=== PATIENT | female | born 1940 | race Caucasian/White ===

== ENCOUNTER 2017-03-23 16:07 | Emergency (ER) | payer MEDICARE, OTHER ==
[2013-08-08 13:15] VITALS: BMI 28.4
[~2017-03-23 16:07] MED LIST: ASPIRIN325 MG PO; HYDROCHLOROTHIA25 MG PO; LOPRESSOR25 MG PO; LOTENSIN40 MG PO; MOTRIN800 MG PO; NITROSTAT0.4 MG SL; TOPROL XL50 MG PO
== END 2017-03-23 16:23 | disposition left against medical advice (07) ==
LOC: D.ER 16:07
DX: Z02.9 Encounter for administrative examinations, unspecified (principal)

== ENCOUNTER → 2018-03-22 14:13 | Outpatient (CLI) | payer MEDICARE, OTHER ==
[2013-08-08 13:15] VITALS: BMI 28.4
== END | disposition home or self-care (01) ==
LOC: D.RAD 14:13
DX: M16.0 Bilateral primary osteoarthritis of hip (principal)

== ENCOUNTER 2021-05-11 15:34 | Inpatient (IN) | payer MEDICARE, OTHER ==
[~2021-05-11] VITALS: Ht 170.2 cm; Wt 75.2 kg
[2021-05-11 16:25] LABS: BILIRUBIN NEGATIVE (NEGATIVE); KETONE NEGATIVE mg/dL (< 1+); NITRITE NEGATIVE (NEGATIVE); SQUAMOUS EPITHELIAL <1 HPF (0-4); UROBILINOGEN NORMAL mg/dL (< 2); WHITE CELLS - URINE 11 HPF (0-4)
[2021-05-11] MEDS ORDERED: ASPIRIN81 MG PO (16:27)
[2021-05-11] MEDS ORDERED: LISINOPRIL20 MG PO (16:27)
[2021-05-11] MEDS ORDERED: CENTRUM SILVER1 EAC3 PO (16:27)
[2021-05-11] MEDS ORDERED: B-12 DOTS500 MCG PO (16:27)
[2021-05-11] MEDS ORDERED: CO Q-10200 MG PO (16:27)
[2021-05-11] MEDS ORDERED: DONEPEZIL HCL10 MG PO (16:28)
[2021-05-11] MEDS ORDERED: CALTRATE+D3 PL1 EACH PO (16:31)
[2021-05-11] MEDS ORDERED: GLUCOSAMINE HC500 MG PO (16:31)
[2021-05-11 16:35] LABS: BASOPHILS 0.8 % (0-2); EOSINOPHILS 2.9 % (0-7); HEMATOCRIT 40.4 % (36.0-48.0); HEMOGLOBIN 13.4 g/dL (12-16); LYMPHOCYTES 25.4 % (15-50); MCH 30.6 pg (26.0-34.0); MCHC 33.2 g/dL (31.0-37.0); MEAN PLATELET VOLUME 7.2 fL (7.4-10.4); MONOCYTES 10.5 % (2-11); NEUTROPHILS 60.4 % (40-80); PLATELET COUNT 182 10x3/uL (130-400); RBC 4.39 10x6/uL (4.00-5.40); RDW 12.9 % (11.5-14.5); WBC 6.4 10x3/uL (4.8-10.8)
[2021-05-11 16:35] LABS: BACTERIA FEW HPF (<MOD); UDS - AMPHET NEGATIVE QUAL (NEGATIVE); UDS - BARB NEGATIVE QUAL (NEGATIVE); UDS - BENZO NEGATIVE QUAL (NEGATIVE); UDS - COCAINE NEGATIVE QUAL (NEGATIVE); UDS - OPIATE NEGATIVE QUAL (NEGATIVE); UDS - PCP NEGATIVE QUAL (NEGATIVE); UDS - THC NEGATIVE QUAL (NEGATIVE)
[2021-05-11 16:42] LABS: CALCIUM 10.3 mg/dL (8.5-10.1); CREATININE - SERUM 1.2 mg/dL (0.6-1.3)
[2021-05-11 16:48] LABS: ALBUMIN 3.9 g/dL (3.4-5.0); BILIRUBIN - TOTAL 0.34 mg/dL (0.2-1.3); MAGNESIUM - SERUM 2.4 mg/dL (1.8-2.4); PROTEIN - SERUM 7.4 g/dL (6.4-8.2)
[2021-05-11 19:53] LABS: SARS-CoV-2 ANTIGEN NEGATIVE- SARS-COV-2 (NEGATIVE)
[2021-05-11 20:00] VITALS: BP 111/78
--- NOTE | 2021-05-11 22:34 | NUR ---
PT ADMITTED TO [facility] FROM [facility] ER FOR S.I. AND AGGRESSION WITH SPOUSE. PT LIVES AT HOME WITH SPOUSE. PT HUSBNAD REPORTS " MY STILL DRIVES, WHEN I HAD TO TAKE HER KEYS IT GOT REALLY BAD." REPORTS" I CALLED POLICE FOR SAFETY. " MY BECAME VERY VERBALLY AND PHYSICALLY AGGRESSIVE. "PT STATED SHE WANTED TO KILL HERSELF. " PT HAS HX OF DEMENTIA PER . VERBAL CONSENT REC'D FROM LANIE SARABIA/QUENTIN CONTACT # [phone]. PT IS DNR. PT'S WILL BRING COPY OF POA AND LIVING WILL PAPERWORK ONE DAY THIS WEEK DUE TO IT IS LOCKED IN SAFETY DEPOSIT BOX AT THE [facility]. PT HUSBANDM REPORTS HE IS HAVING A PROCEDURE AT [facility] ON THURSDAY AND WILL NOT BE ABLE TO BE CONTACTED UNTIL THURSDAY. LANIE REORTED " HE WILL BRING CLOTHING ON THURSDAY EVENING AND PICKUP PT'S BELONGINGS AT THAT TIME. CODE # [id number] PROVIDED TO LANIE AT THIS TIME. PT PHARMACY IS [facility] [place] UNABLE TO GET MEDICATION LIST AT THIS TIME. STAFF WILL NEED TO CONTACT PHARMACY DURING BUSINESS HOURS FOR ACCURATE MEDICATION LIST. PT'S PCP IS MRS. NALDO OROZCO CONTACT # [phone]. PT REPORTED SHE WENT TO ER AT [facility] ON THURSDAY WITH A FRIEND AND HE IS UNSURE THE REASON FOR THE VISIT. MEDICAL RECORDS REQUESTED TO BE SENT TO [facility] PER LANIE SARABIA. PT HAD NEGATIVE COVID RESULT IN [facility] ER. TEVIN BARRIENTOS STATED PT WAS GIVEN ROCEPHIN 1GM IM IN ER FOR UTI. LAB NOTIFIED PER STAFF AND URINE CULTURE COLLECTED BEFORE ANTIBOTIC ADMINISTERED. UPON ARRIVAL PT IS VERY ANXIOUS AND DEMANDING. PT IS CONFUSED AND HAS LITTLE INSIGHT INTO HER SITUATION AT THIS TIME. PT DENIES SI AT THIS TIME.
[2021-05-11 23:09] VITALS: BP 111/78
[2021-05-11 23:25] VITALS: BP 111/76
[2021-05-12 07:19] LABS: CHOL - HDL RATIO 3.4 ratio (2.3-4.1); CHOLESTEROL, TOTAL 226 mg/dL (0-200); HDL CHOLESTEROL 66 mg/dL (32-96); LDL CHOLESTEROL 128 mg/dL (0-100); LDL-HDL RATIO 1.9 ratio (1.5-3.5); THYROID STIMULATING HORMONE 3.22 uIU/mL (0.36-3.74); TRIGLYCERIDE 160 mg/dL (30-200)
[2021-05-12 08:00] VITALS: BP 137/76
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
--- NOTE | 2021-05-12 16:55 | NUR ---
ALERT, CALM, CONFUSED, COOPERATIVE AND QUITE PLEASANT. NO ADVERSE BEHAVIORS NOTED. MEDS ADMIN PER ORDERS WITH COMPLETE MED COMPLIANCE NOTED. NO ADVERSE REACTION TO MEDS. CONTINUE PLAN OF CARE.
--- NOTE | 2021-05-12 19:57 | NUR ---
RECEIVED IN [facility]. CALM AND COOPERATIVE WITH CARE AND ASSESSMENT. NO SIGNS OF AGGRESSION. REDIRECT AND REORIENT NEEDED. RESTING QUIETLY IN BED AT TIME. CONTINUE PLAN OF CARE.
[2021-05-12 22:25] VITALS: BP 133/68
[2021-05-13 08:00] VITALS: BP 120/70
[2021-05-13 13:05] VITALS: Ht 170.2 cm; Wt 75.2 kg
--- NOTE | 2021-05-13 15:10 | NUR ---
RECEIVED IN HALLWAY OUTSIDE OF NURSES STATION. SITTING IN CHAIR. SOCIALIZING. TRYING TO HELP OTHER PATIENTS. CALM AND COOPERATIVE WITH CARE AND ASSESSMENT. NO AGGRESSIVE BEHAVIOR. PATIENT MAKES STATEMENTS THROUGHOUT THE DAY ABOUT HER WANTING TO KILL HER. PATIENT STATES EVERYTHING IS GOING TO CHANGE WHEN SHE GETS OUT OF HERE. REDIRECT AND REORIENT NEEDED. SITTING IN GROUP AT THIS TIME. CONTINUE PLAN OF CARE.
--- NOTE | 2021-05-13 19:48 | NUR ---
RECEIVED IN HALLWAY OUTSIDE OF NURSES STATION. SOCIAL WITH PEERS AND STAFF. IN GOOD SPIRITS. CALM AND COOPERATIVE WITH CARE AND ASSESSMENT. NO SIGNS OF AGGRESSION. REDIRECT AND REORIENT NEEDED. CONTINUES TO BE SOCIAL WITH STAFF AND PEERS. CONTINUE PLAN OF CARE.
[2021-05-13 22:38] VITALS: BP 144/77
[2021-05-14 08:00] VITALS: BP 140/61
--- NOTE | 2021-05-14 10:34 | NUR ---
REC'D PT IN HALLWAY SOCIALIZING WITH PEERS. AWAKE AND ALERT X 2. CALM AND COOPERATIVE WITH ASSESSMENT AT THIS TIME.. PRESCRIBED MEDS PROVIDED ORDERED. MED COMPLIANT. PT IS VERY TEARFUL THIS MORNING. PT SITTING ALONE BY THE WINDOW IN DINING ROOM SINGING AT THIS TIME. NO AGGRRESSION NOTED. CONFUSION NOTED. REDIRECT AND REORIENT NEEDED. FALL PRECAUTIONS IN PLACE FOR SAFETY. WILL CPOC.
--- NOTE | 2021-05-14 15:19 | NUR ---
THIS NURSE CALLED [facility] AND REQUESTED MEDICATION LIST TO BE FAXED TO [facility] AT THIS TIME. AWAITING ON FAX. DR. TROY PRESENT AT THIS TIME. AWARE OF MEDICATION LIST REQUESTED.
--- NOTE | 2021-05-14 15:43 | NUR ---
REC'D MEDICATION LIST VIA FAX. LIST PROVIDED TO DR. TROY PER THIS NURSE.
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
--- NOTE | 2021-05-14 19:22 | NUR ---
RECEIVED IN HALLWAY OUTSIDE OF NURSES STATION. SOCIAL WITH STAFF AND PEERS. CALM AND COOPERATIVE WITH CARE AND ASSESSMENT. IN GOOD SPIRITS. NO SIGNS OF AGGRESSION. REDIRECT AND REORIENT NEEDED. CONTINUES TO SIT CALMLY WITH PEERS. CONTINUE PLAN OF CARE.
[2021-05-14 22:15] VITALS: BP 109/59
--- NOTE | 2021-05-15 05:58 | NUR ---
PATIENT DOES NOT FREELY VERBALIZE FEELS ABOUT HER BUT WHEN ASK DIRECTLY ABOUT IT SHE CONTINUES TO VERBALIZE BEING VERY UPSET WITH HIM.
[2021-05-15 08:44] VITALS: BP 158/65
--- NOTE | 2021-05-15 10:59 | PN ---
PATIENT:SAIDA SARABIA MEDICAL RECORD: [id number] LOCATION:[facility] ADMISSION DATE: 05/11/21 PROGRESS NOTE DATE OF SERVICE: 05/14/2021 SUBJECTIVE: The patient's case was discussed with staff. She has no new complaint. OBJECTIVE: The patient is angry with her . She says that she is not going to live with him and wants to live with her son or daughter. ASSESSMENT: Dementia. PLAN: Current medicines have been reviewed. Long-term prognosis is guarded. TRANSINT:[id number] Voice Confirmation ID: [id number] DOCUMENT ID: [id number] CHINMAY JACOBSON MD at 1059 CC: [id number] DICTATION DATE: 05/14/21 1655 LENS FINISHER: 05/14/21 192 ADM IN [facility] [address] [place] [address]
--- NOTE | 2021-05-15 15:10 | NUR ---
Rec'd this am ambulating in the hallway where she is walking up and down the bueno. She is a/o to person,place, and time. She is med compliant and takes meds whole.She has sat in group and participaqtes well. She was tearful this am and expressed concerns with her . She was able to be directed and then participated well in activities.
--- NOTE | 2021-05-15 15:20 | NUR ---
Nutrition Re-Assessment Diet: Low Sodium PO intake: 90-100% x all meals Last BM: none since admit Wt: 161.4# (05/13/21); Admit Wt: 161# (05/11/21) Meds and labs reviewed Patient appears to remain at low nutrition risk at this time. Please consult RD if further MNT is medically indicated and/or desired by MD. RD will continue to monitor for nutrition risk factors DHS. RD will follow-up within 7 days.
--- NOTE | 2021-05-15 18:10 | NUR ---
PT DAUGHTER CALLED. PASSCODE GIVEN. SHE WANTED TO KNOW HOW SHE WAS DOING. NURSE GAVE AN UPDATE ATE 100% AND SLEPT 7.5 HOURS. SHE WAS DOING BETTER. NO AGGRESSION NOTED. SHE HAS NOT SAID ANYTHING ABOUT HER AND SHE IS MUCH BRIGHTER. SHE STATED THATS GOOD. I'M GLAD SHE IS EATING AND SLEEPING. WELL TOMMORROW WE HAVE AN APPT WITH THE MOCCASIN SEWER AND HOPEFULLY IT WILL GO WELL. NURSE TRANSFERRED PHONE SO SHE COULD SPEAK WITH THE PT.
[2021-05-15 20:00] VITALS: BP 155/58
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
[2021-05-16 09:09] VITALS: BP 135/78
--- NOTE | 2021-05-16 14:21 | PN ---
PATIENT:SAIDA SARABIA MEDICAL RECORD: [id number] LOCATION:[facility] ADMISSION DATE: 05/11/21 PROGRESS NOTE DATE OF SERVICE: 05/15/2021 SUBJECTIVE: The patient's case was discussed with staff. She has no new complaint. OBJECTIVE: The patient is partially oriented. She is cooperative. She does not mention any problems with her today. ASSESSMENT: Dementia. PLAN: The patient's daughter, son, and are coming tomorrow for a conference. Her long-term prognosis is guarded. TRANSINT:[id number] Voice Confirmation ID: [id number] DOCUMENT ID: [id number] CHINMAY JACOBSON MD at 1421 CC: [id number] DICTATION DATE: 05/15/21 1619 PUBLIC HEALTH INSPECTOR: 05/15/21 1825 ADM IN [facility] [address] [place] [address]
--- NOTE | 2021-05-16 15:29 | NUR ---
Rec'd patient this am ambulating in hallway. She is a/o to person,place,and time. She takes her meds whole and is compliant. She is interactive and cooperative. She denines any suicidal ideation or self harm. She is energetic and likes to talk to the staff and other patients. She sits in group and participates and helps other patients participate.
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
[2021-05-16 20:00] VITALS: BP 106/64
[2021-05-17 08:00] VITALS: BP 186/63
--- NOTE | 2021-05-17 08:51 | NUR ---
pt sitting socializing with peers. pt is calm and alert to person, place and time. limited insight noted to situation. confusion noted. redirect and reorient as needed. pt is compliant with meds, vitals and assessments. pt is friendly with peers and staff. pt is confused about d/c plan at this time. ambulates. can make needs known. bed alarm in place and active. will cont plan of care.
[2021-05-17 21:11] VITALS: BP 150/48
--- NOTE | 2021-05-18 02:30 | NUR ---
B) Patient is alert and oriented to person, place and time, calm and cooperative, helps with the other patients I) Administered scheduled medications as ordered, redirected as needed, R) Medication compliant, pleasent and helpful P) Continue plan of care.
[2021-05-18 08:34] VITALS: BP 122/71
--- NOTE | 2021-05-18 09:52 | NUR ---
RECEIVED IN HALLWAY OUTSIDE OF NURSES STATION. SITTING IN CHAIR AND SOCIALIZING WITH STAFF AND PEERS. CALM AND COOPERATIVE WITH CARE AND ASSESSMENT. TRIES TO BE HELPFUL WITH OTHER PATIENTS. NO AGGRESSIVE BEHAVIOR. REDIRECT AND REORIENT NEEDED. SITTING IN DAYROOM WITH PEERS AT THIS TIME. CONTINUE PLAN OF CARE.
[2021-05-18 21:09] VITALS: BP 126/53
--- NOTE | 2021-05-19 02:10 | NUR ---
B) Patient is alert and orientd to person, place and time, calm and helpful I) Administered scheduled medications as ordered, redirected and reoriented as needed, R) Medication compliant, resting quetly now in her room P) Continue plan of care.
[2021-05-19 09:19] VITALS: BP 114/61
--- NOTE | 2021-05-19 12:28 | NUR ---
This patient was [facility] and no staff members were present. Patient was advised and encouraged to allow and for her to notify staff when needs are to be met.
--- NOTE | 2021-05-19 15:25 | NUR ---
ALERT, CALM, COOPERATIVE, CONFUSED. MEDS ADMIN PER ORDERS WITH COMPLETE MED COMPLIANCE NOTED. NO ADVERSE REACTION NOTED. NO ADVERSE BEHAVIORS NOTED. CONTINUE POC OUTLINED.
--- NOTE | 2021-05-19 16:30 | NUR ---
FAMILY HERE TO VISIT WITH PATIENT.
--- NOTE | 2021-05-19 19:23 | NUR ---
RECEIVED IN HALLWAY OUTSIDE OF NURSES STATION. HELPFUL WITH PEERS. INTRUSIVE AT TIMES. CALM AND COOPERATIVE WITH CARE AND ASSESSMENT. NO SIGNS OF AGGRESSION. REDIRECT AND REORIENT NEEDED. SITTING IN CALMLY IN HALLWAY. CONTINUE PLAN OF CARE.
[2021-05-19 21:45] VITALS: BP 131/68
[2021-05-20 08:00] VITALS: BP 111/72
--- NOTE | 2021-05-20 10:08 | NUR ---
REC'D PT PACING THE HALLWAY AT THIS TIME. AWAKE AND ALERT TO PERSON ONLY. CALM AND COOPERATIVE WITH ASSESSMENT AT THIS TIME. PT CAN BE INTRUSIVE AT TIMES. REDIRECT AND REORIENT NEEDED. PRESCRIBED MEDICATIONS PROVIDED ORDERED. MED COMPLIANT. FALL PRECAUTIONS IN PLACE FOR SAFETY. WILL CPOC.
--- NOTE | 2021-05-20 14:11 | PN ---
PATIENT:SAIDA SARABIA MEDICAL RECORD: [id number] LOCATION:[facility] ADMISSION DATE: 05/11/21 PROGRESS NOTE DATE OF SERVICE: 05/16/2021 SUBJECTIVE: The patient's case was discussed with staff. She has no new complaint. OBJECTIVE: The patient is oriented to person and place and somewhat to time. She was in good behavioral control and has no thoughts of harming herself or others. She most definitely does have a dementia, but it is not in the advanced stage, but it is also not early. She has clear evidence of impairment and does require a significant amount of supervision and redirection. She insists that she does not want to live with her . He is heartbroken. There will be a family session with the and both children from out of state today. ASSESSMENT: Dementia. PLAN: Current medicines are going to be maintained. I am going to increase the dose of the Zoloft slightly and hopefully the patient can be restored to living with her or perhaps living with one of her children temporarily. At this point, it is simply unknown. TRANSINT:[id number] Voice Confirmation ID: [id number] DOCUMENT ID: [id number] CHINMAY JACOBSON MD at 1411 CC: [id number] DICTATION DATE: 05/16/21 1452 GROUND WIRER: 05/16/21 1752 ADM IN [facility] [address] [place] [address]
[2021-05-20] MEDS ORDERED: ZOLOFT50 MG PO (15:57)
[2021-05-20 20:00] VITALS: BP 138/75
--- NOTE | 2021-05-20 20:20 | NUR ---
RECEIVED IN HALLWAY OUTSIDE OF NURSES STATION. SOCIAL WITH STAFF AND PEERS. HELPFUL WITH PEERS. CALM AND COOPERATIVE WITH CARE AND ASSESSMENT. NO SIGNS OF AGGRESSION. REDIRECT AND REORIENT NEEDED. SITTING CALMLY OUTSIDE OF NURSES STATION AT THIS TIME. CONTINUE PLAN OF CARE.
[2021-05-21 08:00] VITALS: BP 138/69
--- NOTE | 2021-05-21 08:13 | NUR ---
REC'D PT IN HALLWAY SOICIALIZING WITH PEERS. AWAKE AND ALERT X 3. CALM AND COOPERATIVE WITH ASSESSMENT AT THSI TIME. NO BEHAVIORS NOTED. MOOD IS PLEASANT. NO AGGRESSION NOTED. FALL PRECAUTIONS IN PLACE. WILL CPOC.
--- NOTE | 2021-05-21 08:41 | PN ---
PATIENT:SAIDA SARABIA MEDICAL RECORD: [id number] LOCATION:[facility] ADMISSION DATE: 05/11/21 PROGRESS NOTE DATE OF SERVICE: 05/20/2021 SUBJECTIVE: The patient's case was discussed with staff. She has no new complaint. OBJECTIVE: The patient denies intent to harm herself or others. She generally tolerates her medicines well. She has made arrangements to live with her daughter and son-in-law in [place] and would like to be discharged tomorrow. ASSESSMENT: Dementia. PLAN: The patient will be transitioned out of the hospital tomorrow. She is going to live with her daughter in another state. FOLLOWUP: Will need to be arranged by the daughter in [place] and I am going to give the patient a 30-day supply of medicine to last in the interim. TRANSINT:[id number] Voice Confirmation ID: [id number] DOCUMENT ID: [id number] CHINMAY JACOBSON MD at 0841 CC: [id number] DICTATION DATE: 05/20/21 1553 PROPERTY INSPECTOR: 05/20/21 1851 ADM IN [facility] [address] [id number]
--- NOTE | 2021-05-21 12:00 | NUR ---
Pt discharged home with daughter armin. No s/sx of distress noted. Kristen BARRIENTOS called medications to [facility] and spoke with Katlyn at 1300.
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
== END 2021-05-21 12:00 | disposition home or self-care (01) | DRG 884 ==
LOC: D.ER 15:34 → D.PSYCH 18:33 → D.EDHOLD 18:33 → D.PSYCH 19:14
PROVIDERS: Family Medicine; ADMIT Psychiatry & Neurology Psychiatry; ATTEND Psychiatry & Neurology Psychiatry
DX: F02.81 Dementia in other diseases classified elsewhere, unspecified severity, with behavioral disturbance (principal); T83.511A Infection and inflammatory reaction due to indwelling urethral catheter, initial encounter; N39.0 Urinary tract infection, site not specified; G30.1 Alzheimer's disease with late onset; I10 Essential (primary) hypertension; I25.10 Atherosclerotic heart disease of native coronary artery without angina pectoris; Z79.82 Long term (current) use of aspirin; E78.00 Pure hypercholesterolemia, unspecified